=== PATIENT | female | born 1995 | race Caucasian/White ===

== ENCOUNTER → 2020-04-03 20:35 | Observation (INO) ==
[~2020-04-03 20:35] MED LIST: 0.9 % Sodium Chloride 1,000 ML IVC SCH; Azithromycin 250 MG TABLET PO ONE; Betamethasone Acet/SodPhos 30 MG/5 ML VIAL IM SCH; ceFAZolin 1,000 MG in Water for inj. (sterile) 10 ML IVP ONE
== END | disposition other institution (70) ==
LOC: 1NENULAB
PROVIDERS: ADMIT Obstetrics & Gynecology; ATTEND Obstetrics & Gynecology